=== PATIENT | female | born 1990 | race Caucasian/White ===

== ENCOUNTER 2020-07-23 09:01 | Emergency (ER) | payer SELFPAY ==
[~2020-07-23] VITALS: Ht 160 cm; Wt 66.2 kg
[2020-07-23 09:01] VITALS: BP_SYST 111
--- NOTE | 2020-07-23 09:05 | NUR ---
PLACED IN TENT, TRIAGED IN TENT
--- NOTE | 2020-07-23 10:00 | NUR ---
DR. SANCHEZ EXAMINING PT
[2020-07-23 10:40] VITALS: BP_SYST 119
--- NOTE | 2020-07-23 10:40 | NUR ---
Patient given written and verbal discharge instructions and verbalizes understanding. ER MD discussed with patient the results and treatment provided. Patient in stable condition. ID arm band removed. Rx of given. Patient educated on pain management and to follow up with PMD. Pain Scale 0/10. Opportunity for questions provided and answered. Medication side effect fact sheet provided.
== END 2020-07-23 10:40 | disposition home or self-care (01) ==
LOC: SED 09:01
DX: R51.9 Headache, unspecified (principal); G47.00 Insomnia, unspecified
CPT/HCPCS: 99281